=== PATIENT | male | born 1975 | race Caucasian/White ===

== ENCOUNTER 2024-09-22 15:47 | Emergency (ER) | payer OTHER, SELFPAY ==
[2024-09-22 15:57] VITALS: BP 136/80; PULSE 95; RESP 20; TEMP 36.4; O2SAT 99; BMI 25.7
[2024-09-22 16:46] LABS: Strep Grp A by PCR Rapid Negative (Negative)
[2024-09-22 17:13] LABS: Influenza A - CEPHEID Flu A NEGATIVE (NEGATIVE); Influenza B - CEPHEID Flu B NEGATIVE (NEGATIVE)
[2024-09-22 17:21] LABS: COVID-19 CEPHEID 4-PLEX PCR Negative (Negative)
--- NOTE | 2024-09-22 18:10 | ED.URI ---
HPI - URI/Sore Throat General Chief Complaint: Upper Respiratory Symptoms Stated Complaint: [facility] REF Time Seen by Provider: 09/22/24 15:54 Source: patient Mode of arrival: Ambulatory History of Present Illness HPI Narrative: 49-year-old male has 6 days duration of cough, also sore throat. Had some concern about possible exposure to measles/mumps, as last week he was around a 2-year-old in another household who had gotten MMR shot and then subsequently post MMR shot had a rash. Unclear if that 2-year-old actually had any illness symptoms, sounds like the rash occurred after the MMR shot was given. Patient does not have any rash. Patient has been attempting to self isolate for the last 6 6 days. Related Data Previous Rx's ?Medication ?Instructions ?Recorded benzonatate 200 mg capsule 200 mg PO BID-TID PRN cough #20 09/22/24 caps Allergies Allergy/AdvReac Type Severity Reaction Status Date / Time No Known Drug Allergies Allergy Verified 09/22/24 15:58 Patient History Social History Smoking Status: Current every day smoker Smoking Status: Current every day smoker tobacco type: cigarettes Exam Narrative Exam Narrative: GENERAL: Well-developed patient, in mild distress. HEAD: Atraumatic. Normocephalic. EYES: Pupils equal round and reactive. Extraocular motions intact. No scleral icterus. No injection or drainage. ENT: Nose without bleeding, purulent drainage. Throat without erythema, tonsillar hypertrophy or exudate. Airway patent. NECK: Trachea midline. Non tender CARDIOVASCULAR: Regular rate and rhythm without murmurs, gallops, or rubs. RESPIRATORY: Clear to auscultation. Breath sounds equal bilaterally. No wheezes, rales, or rhonchi. GASTROINTESTINAL: Abdomen soft, non-tender, nondistended. EXTREMITIES: No edema or joint tenderness. BACK: Nontender without deformity or crepitance. No flank tenderness. NEURO: AOx3. Motor functions grossly nonfocal. SKIN: No rash or erythema of visible areas Initial Vital Signs Initial Vital Signs: Vital Signs Temperature 97.5 F L 09/22/24 15:57 Pulse Rate 95 H 09/22/24 15:57 Respiratory Rate 20 09/22/24 15:57 Blood Pressure 136/80 09/22/24 15:57 Pulse Oximetry 99 09/22/24 15:57 Oxygen Delivery Method Room Air 09/22/24 15:57 Course Orders Ordered: Discontinued Medications Albuterol (Albuterol Hfa Prepack) 1 box MISC DIRECTED ONE Stop: 09/22/24 18:22 Last Admin: 09/22/24 18:29 Dose: 1 box Documented By: LAUREN Benzonatate (Benzonatate 100 Mg Capsule) 100 mg PO NOW ONE Stop: 09/22/24 18:24 Last Admin: 09/22/24 18:29 Dose: 100 mg Documented By: LAUREN Vital Signs Vital signs: Vital Signs - 8 hr 09/22/24 15:57 Temperature 97.5 F L Pulse Rate 95 H Respiratory Rate 20 Blood Pressure 136/80 Pulse Oximetry 99 Oxygen Delivery Method Room Air MDM - URI/Sore Throat Lab Data Attestation: I reviewed the patient's lab results. Lab results narrative: COVID, flu, RSV negative. Strep screen negative. Labs: Lab Results 09/22/24 Range/Units 16:09 SARS-CoV-2 (PCR) Negative (Negative) Influenza A (RT-PCR) Flu a negative (NEGATIVE) Influenza B (RT-PCR) Flu b negative (NEGATIVE) RSV (PCR) Negative (Negative) Group A Strep (PCR) Negative (Negative) MDM Narrative Medical decision making narrative: 49-year-old male concerned about exposure to measles, child apparently recent exposure had a rash, but had just had measles mumps rubella shot, apparently not known to be ill. Patient has upper respiratory infection and sore throat symptoms. COVID flu RSV swab and rapid strep screen studies from triage were negative. Patient reassurance, does not seem likely that he has measles by above history. Also no rash with 6 days of upper respiratory infection symptoms. Discussed symptomatic treatment. Advised Tylenol and or Motrin, fluids, symptomatic treatment. Discharged home. Discharge Plan Departure Patient Disposition: Home Clinical Impression: Upper respiratory infection, Pharyngitis Instructions: DI for Viral Upper Respiratory Infection -- Adult Activity Restrictions/Additional Instructions: Six days duration of cough and sore throat. Screening labs here included respiratory panel that had COVID, influenza, RSV, all of which were negative. Strep screen was also negative. You had some concern about possible measles exposure. Last week apparently your around a 2-year-old that had recent MMR shot in clinic, and after the shot had a rash. Not known if the 2-year-old has actually had any illness symptoms, which seems less likely given fever/illness might be reason to postpone immunizations, sounds like the rash occurred after the MMR shot for that other patient, seems unlikely for to exposure to measles illness itself. If you have concerns about your own measles (or other mumps rubella) immunity, you could consider outpatient blood draw for measles mumps rubella titers, and if they are low you can have an adult MMR vaccination update. Others in your family that have this concern could also similarly have screening with serology testing with the regular providers as an outpatient, if immunity is a concern. Seems unlikely by above history that there is actually it exposure to measles illness, as there might have been exposure to someone with post MMR vaccination rash, not necessarily to any illness. Your lungs sound clear today. You had no rash or K[place]lick spots, or changes in your oropharynx to suggest measles or other obvious infection, not consistent with streptococcal or bacterial infection, no ulcers or vesicles noted in the throat either. Consider use of inhaler with spacer to help control cough symptoms, 2 puffs 4 times daily for the next week or so and then as needed. Consider Tessalon Perle medication to help control cough, cough suppressant medication, tablet dispensed in the emergency department, prescription sent to requested pharmacy [facility], can fill and take medication to help control cough tomorrow. Consider use of mask until cough better, to reduce the risk of spread of any viral illness to others until your cough is better. Consider recheck early this next week for above issues, if you want to get MMR serology screening as an outpatient with your regular doctor. And also for follow up of your illness symptoms to see how you are doing. Return earlier to this/nearest emergency department for any change worsening symptoms or any concerns prior. Prescriptions: New benzonatate 200 mg capsule 200 mg PO BID-TID PRN (Reason: cough) Qty: 20 0RF Referrals: Miscellaneous,Doctor, MD [Primary Care Provider, Medical] Stand Alone Forms: Patient Portal/API
[2024-09-22] MEDS: ALBUTEROL HFA PREPACK 1 BOX MISC (18:29)
[2024-09-22] MEDS: BENZONATATE 100 MG CAPSULE PO (18:29)
[2024-09-22 18:37] VITALS: BP 134/81; PULSE 96; RESP 20; O2SAT 99
== END 2024-09-22 18:39 | disposition home or self-care (01) ==
PROVIDERS: Family Medicine; Emergency Provider Emergency Medicine
DX: J06.9 Acute upper respiratory infection, unspecified (principal); J02.9 Acute pharyngitis, unspecified
CPT/HCPCS: 87637; 87651; 99283